=== PATIENT | male | born 1945 | race Caucasian/White ===

== ENCOUNTER 2016-11-18 17:41 | Inpatient (IN) | payer MEDICARE, OTHER ==
[~2016-11-18] VITALS: Ht 182.9 cm; Wt 89.0 kg
[2016-11-18] MEDS ORDERED: SODIUM CHLORIDE 0.9% 100 ML IV ONE (20:06)
[2016-11-18] MEDS ORDERED: SODIUM CHLORIDE 0.9% 1,000 ML ONE (20:06)
[2016-11-18] MEDS ORDERED: CEFTRIAXONE 1 GM VIAL ONE (20:06)
[2016-11-18] MEDS ORDERED: ALU/MAG/SIM 30 ML UDC PO PRN (22:00)
[2016-11-18] MEDS ORDERED: MAG HYDROX 30 ML UDC PO PRN (22:00)
[2016-11-18] MEDS ORDERED: SODIUM CHLORIDE 0.9% 1,000 ML IV SCH (22:00)
[2016-11-18] MEDS ORDERED: ACETAMINOPHEN 325 MG TAB PO PRN (22:00)
[2016-11-18] MEDS ORDERED: BISACODYL EC 5 MG TAB PO PRN (22:00)
[2016-11-18] MEDS ORDERED: SALINE FLUSH 10 ML FLUSH PRN (22:00)
[2016-11-18] MEDS ORDERED: BISACODYL 10 MG SUPP RECTAL PRN (22:00)
[2016-11-19] VITALS (8 sets, daily range): BP systolic 91–143; RESP 17–18; TEMP 97.4–98.5; Ht 182.9 cm; Wt 89.0 kg
[2016-11-19] MEDS: SODIUM CHLORIDE 0.9% FLUSH BAG 500 ML IV SCH (01:08)
[2016-11-19] MEDS ORDERED: HALOPERIDOL 5 MG/ML VIAL IV ONE (01:55)
[2016-11-19] MEDS: CEFTRIAXONE 1 GM in SODIUM CHLORIDE 0.9% 50 ML IV SCH (08:13)
[2016-11-19] MEDS: ASPIRIN EC 81 MG TAB PO SCH (08:14)
[2016-11-19] MEDS: VITAMIN E 1000 UNIT PO SCH ×2 (08:14→21:06)
[2016-11-19] MEDS: MEMANTINE 10 MG TAB PO SCH ×2 (08:14→21:07)
[2016-11-19] MEDS: CHOLECALCIFEROL 1,000 UNITS TAB PO SCH (08:14)
[2016-11-19] MEDS: FAMOTIDINE 20 MG INJ IV SCH ×2 (08:14→21:06)
[2016-11-19] MEDS: SALINE FLUSH 10 ML FLUSH SCH ×2 (08:14→20:00)
[2016-11-19] MEDS: FELODIPINE SR 5 MG TAB PO SCH (08:14)
[2016-11-19] MEDS: OMEGA 3 FATTY ACIDS 1 GM CAP PO SCH ×2 (08:14→21:06)
[2016-11-19] MEDS ORDERED: ENOXAPARIN 40 MG/0.4 ML SYR SUBQ SCH (09:00)
[2016-11-19] MEDS ORDERED: DONEPEZIL HCL 5 MG TAB PO SCH (21:00)
[2016-11-20] MEDS ORDERED: HALOPERIDOL 5 MG/ML VIAL IV ONE (01:10)
[2016-11-20] MEDS: SODIUM CHLORIDE 0.9% FLUSH BAG 500 ML IV SCH (06:00)
[2016-11-20 07:39] VITALS: BP_SYST 143; TEMP 97.9
[2016-11-20 07:40] VITALS: RESP 20
[2016-11-20] MEDS: OMEGA 3 FATTY ACIDS 1 GM CAP PO SCH (08:49)
[2016-11-20] MEDS: ASPIRIN EC 81 MG TAB PO SCH (08:49)
[2016-11-20] MEDS: MEMANTINE 10 MG TAB PO SCH (08:49)
[2016-11-20] MEDS: CHOLECALCIFEROL 1,000 UNITS TAB PO SCH (08:49)
[2016-11-20] MEDS: FELODIPINE SR 5 MG TAB PO SCH (08:49)
[2016-11-20] MEDS: SALINE FLUSH 10 ML FLUSH SCH (08:49)
[2016-11-20] MEDS: VITAMIN E 1000 UNIT PO SCH (08:49)
[2016-11-20] MEDS: FAMOTIDINE 20 MG INJ IV SCH (08:50)
[2016-11-20] MEDS: CEFTRIAXONE 1 GM in SODIUM CHLORIDE 0.9% 50 ML IV SCH (09:05)
[2016-11-20 10:33] VITALS: BP_SYST 143; RESP 20; TEMP 97.9
== END 2016-11-20 11:08 | disposition home or self-care (01) | DRG 872 ==
LOC: ENRESERV → ENRESERVDT → ENRESERVTM → ER 17:41 → ENPENDDIS 21:59 → EMR 21:59 → PCU 23:03
PROVIDERS: ADMIT Internal Medicine; ATTEND Hospitalist
DX: A41.9 Sepsis, unspecified organism (principal); N17.9 Acute kidney failure, unspecified; D69.6 Thrombocytopenia, unspecified; N39.0 Urinary tract infection, site not specified; I48.2 Chronic atrial fibrillation; G30.9 Alzheimer's disease, unspecified; F02.80 Dementia in other diseases classified elsewhere, unspecified severity, without behavioral disturbance, psychotic disturbance, mood disturbance, and anxiety; R65.20 Severe sepsis without septic shock; N28.89 Other specified disorders of kidney and ureter; K76.9 Liver disease, unspecified; Z79.01 Long term (current) use of anticoagulants; W01.0XXA Fall on same level from slipping, tripping and stumbling without subsequent striking against object, initial encounter; Y92.002 Bathroom of unspecified non-institutional (private) residence as the place of occurrence of the external cause; Z87.891 Personal history of nicotine dependence
CPT/HCPCS: 36415; 70450; 71010; 71250; 80048; 80053; 81001; 82553; 83605; 83880; 84145; 84484; 85025; 85610; 85730; 87040; 87088; 87804; 93005; 96361; 96365; 99223; 99239